=== PATIENT | female | born 1975 | race Caucasian/White ===

== ENCOUNTER 2024-10-10 08:21 | Emergency (ER) | payer OTHER ==
--- OUTSIDE RECORDS SUMMARY | 2024-10-10 08:26 | XMS REPORT | Continuity of Care Document ---
Author Name Unknown Address [address] [facility] [address] [place] [address] [facility] Address [address] [facility] [address] [place] [address] Care Team Providers Care Filter Cleaner Name Role Phone Katy Ramirez Attending Clinician Un available JUSTYNA BRAMBILA Attending Clinician Unavailable LENO CHING Attending Clinician Unavailable LAB90 Attending Clinician Unavailable GC_GCBZW_Kaashlynyala_S Attending Clinician UnavailVIRGINIA Patel Attending Clinician Unava ilable Physician, No Primary or Family Admitting Clinic serjio Unavailable GC_GCBZW_Kadiyala_S Admitting Clinician Unavailjhonathan olguin Payers Payer Name Policy Type Policy Number Effective Date Expirati on Date Source AETNA-MERITAIN/PP O 2 [id number] 2024 00:00:00 AET[employer] - CHOICE (POS II) [id number] 2023 00:00:00 BCBS 2 [id number] 2022 00:00:00 Problems Condition Name Condition Details Condition Category Status Onset Date Resolution Date Last Treatment Date Treating Clinician Comments Source Vitamin D deficiency Vitamin D Deficiency Problem Active 8- 00:00: 00 [facility] Insomnia Insomnia Problem Active 8- 00:00: 00 [facility] Pain of joint Pain of Joint Problem Active 8- 00:00: 00 [facility] Menopausal syndrome Menopausal Syndrome Problem Active 8- 00:00: 00 [facility] Fatigue Fatigue Problem Active 8 00:00: 00 [facility] Menopausal symptoms Menopausal symptoms Disease Active 8 00:00: 00 Dianne Seybold - Externa l Prediabete s Prediabete s Disease Active 09-29 00:00: 00 Dianne Seybold - Externa l Right arm pain Right arm pain Disease Active 7 00:00: 00 Dianne Seybold - Externa l Acute pain of right shoulder Acute pain of right shoulder Disease Active 08-25 00:00: 00 Dianne Seybold - Externa l Obesity, Class I, BMI 30-34.9 Obesity, Class I, BMI 30-34.9 Disease Active 3 00:00: 00 Dianne Seybold - Externa l 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 nt asthma (HHS-HCC) Disease Active 3 00:00: 00 Dianne Seybold - Externa l Hypertrigl yceridemia Hypertrigl yceridemia Disease Active 2023-02 00:00: 00 Dianne Seybold - Externa l Hyperchole steremia Hyperchole steremia Disease Active 2023-02 00:00: 00 Dianne Seybold - Externa l Abnormal findings on diagnostic imaging of breast Abnormal Findings on Diagnostic Imaging of Breast Problem Active 2023-02 0-29 00:00: 00 [facility] Inconclusi ve mammograph y finding Inconclusi ve Mammograph y Finding Problem Active 2023-02 0-15 00:00: 00 [facility] Genital lichen sclerosus Genital Lichen Sclerosus Problem Active 4-05 00:00: 00 [facility] Genital herpes simplex Genital Herpes Simplex Problem Active 4-05 00:00: 00 [facility] Herpesviru s infection Herpesviru s Infection Problem Active 9-07 00:00: 00 [facility] Superficia l pain on intercours e Superficia l Pain on Intercours e Problem Active 9- 00:00: 00 [facility] Granulomat ous disorder of the skin and subcutaneo us tissue Granulomat ous Disorder of the Skin and Subcutaneo us Tissue Problem Active 2020-02 2- 00:00: 00 [facility] Sensation as if urinary bladder still full Sensation as If Urinary Bladder Still Full Problem Active 2020-02 2- 00:00: 00 [facility] Deep pain on intercours e Deep Pain on Intercours e Problem Active 8-11 00:00: 00 [facility] Postcoital bleeding Postcoital Bleeding Problem Active 8-11 00:00: 00 [facility] Lichen sclerosus Lichen Sclerosus Problem Active 5-12 00:00: 00 [facility] Polymenorr hea Polymenorr hea Problem Active 1-18 00:00: 00 [facility] Family history of malignant neoplasm of genital structure Family History of Malignant Neoplasm of Genital Structure Problem Active 1-18 00:00: 00 [facility] Pelvic and perineal pain Pelvic and Perineal Pain Problem Active 1-18 00:00: 00 [facility] Excessive menstruati on with irregular cycle Excessive Menstruati on with Irregular Cycle Problem Active 1-18 00:00: 00 [facility] Neck pain Neck pain Disease Resolve d 7-09 00:00: 00 2024-09-29 00:00:00 2024-09-29 14:58:06 Dianne Garayold - Externa l Elevated LFTs Elevated LFTs Disease Resolve d 2023-02 2-26 00:00: 00 2024-09-29 00:00:00 2024-09-29 14:54:33 Dianne Seybold - Externa l Allergies, Adverse Reactions, Alerts Allergy Name Allergy Type Status Severity Reaction(s) Onset Date Inactive Date Treating Clinician Comments Source codeine DA Active U VOMITING 3-04 00:00: 00 [facility] codeine DA Active U 3-04 00:00: 00 [facility] Codeine Propensi ty to adverse reaction s Active 3-04 00:00: 00 Dianne Carrera - Externa l Codeine Propensi ty to adverse reaction s Active 3 00:00: 00 Dianne Carrera - Externa l Penicill ins DA Active U BREATHING DIFFICULTY 2 00:00: 00 [facility] Penicill ins DA Active U 04-04 00:00: 00 [facility] Penicill ins Propensi ty to adverse reaction s Active Hives 08-09 00:00: 00 Other reaction( s): BREATHING DIFFICULT Y Dianne Carrera - Binga aries Penicill ins Propensi ty to adverse reaction s Active Hives, Itching, Rash, Shortness of Breath, Swelling 05-15 00:00: 00 Other reaction( s): BREATHING DIFFICULT Y Other Reaction( s): Unknown Dianne chris Codeine Allergy to substanc e Active [facility] PENICILL IN Allergy to substanc e Active [facility] Social History Social Habit Start Date Stop Date Quantity Comments Source Sexual orientation 2024-02-10 04:29:16 Heterosexual (finding) Dianne Carrera - External Gender identity 2024-02-10 04:29:16 Identifies as female gender (finding) Dianne Carrera - External ASSERTION Not Dianne Carrera - External Alcoholic beverage intake 2024-09-29 00:00:00 2024-09-29 00:00:00 Current drinker of alcohol (finding) Dianne Carrera - External Alcohol Comment 2024-02-12 00:00:00 2024-02-12 00:00:00 socially Dianne Carrera - External Tobacco use and exposure 2024-02-12 00:00:00 2024-02-12 00:00:00 Smokeless tobacco non-user Dianne Carrera - External History of Social function 2022-11-15 00:00:00 2022-11-15 00:00:00 Dianne Ferrer External Sex 2020-05-16 17:28:30 2020-05-16 17:28:30 Female (finding) Dianne Knowles Sex [birth year] at 1975 00:00:00 1975 00:[birth year]:00 F Dianne Ferrer External Smoking Status Start Date Stop Date Source Never smoked tobacco Dianne Ferrer External Medications Ordered Medication Name Filled Medication Name Start Date Stop Date Current Medication? Ordering Clinician Indication Dosage Frequency Signature (SIG) Comments Components Source B Complex Vitamins (VITAMIN B COMPLEX OR) B Complex Vitamins (VITAMIN B COMPLEX OR) 09-29 14:25: 29 Yes Take by mouth. Dianne Smarta l Cholecalcif ciarra (Vitamin D) 25 MCG (1000 UT) oral Tablet Cholecalcif ciarra (Vitamin D) 25 MCG (1000 UT) oral Tablet 09-29 14:25: 29 Yes 25U QD Take 25 units by mouth daily. Dianne chris Phentermine HCl 37.5 MG oral Tablet Phentermine HCl 37.5 MG oral Tablet 09-29 00:00: 00 Yes [id number] 4107 37.5mg Take 1 tablet (37.5 mg total) by mouth every morning (before breakfast) . Dianne chris Tiffin-3 Fatty Acids (Fish Oil) 1000 MG oral Capsule Tiffin-3 Fatty Acids (Fish Oil) 1000 MG oral Capsule 09-29 00:00: 00 Yes [id number] 1000mg QD Take 1 capsule (1,000 mg total) by mouth daily. Dianne chris Cholecalcif ciarra (Vitamin D) 25 MCG (1000 UT) oral Tablet 08-25 15:47: 54 Yes 25U QD Take 25 units by mouth daily. Dianne Stout l VITAMIN D OR 08-25 15:47: 47 08-25 00:00 :00 No Take by mouth. Dianne Smarta l VITAMIN K OR 08-25 15:47: 41 08-25 00:00 :00 No Take by mouth. Dianne chris B Complex Vitamins (VITAMIN B COMPLEX OR) 08-25 15:04: 05 Yes Take by mouth. Dianne chris Valacyclovi r HCl 500 MG oral Tablet Valacyclovi r HCl 500 MG oral Tablet 08-25 00:00: 00 Yes [id number] 500mg QD Take 1 tablet (500 mg total) by mouth daily. Dianne chris Celecoxib (CeleBREX) 100 MG oral Capsule Celecoxib (CeleBREX) 100 MG oral Capsule 08-25 00:00: 00 09-29 00:00 :00 No [id number] 100mg Q.5D Take 1 capsule (100 mg total) by mouth 2 times daily as needed for pain. Dianne chris Gabapentin 100 MG oral Capsule Gabapentin 100 MG oral Capsule 08-25 00:00: 00 09-29 00:00 :00 No [id number] 100mg Q.5D Take 1 capsule (100 mg total) by mouth 2 times daily as needed (pain). Dianne chris EPINEPHrine 0.3 MG/0.3 ML IJ SOAJ EPINEPHrine 0.3 MG/0.3 ML IJ SOAJ 08-13 00:00: 00 Yes INJECT 0.3 ML INTRAMUSCU LARLY (MID-THIGH , OFF CENTER) NEEDED FOR ANAPHYLAXI S Dianne chris VITAMIN K OR 04-30 08:33: 41 Yes Take by mouth. Dianne chris Phentermine HCl 37.5 MG oral Capsule 04-30 00:00: 00 08-25 00:00 :00 No [id number] 4107 37.5mg Take 1 capsule (37.5 mg total) by mouth every morning. Dianne chris Fluticasone -Salmeterol 250-50 MCG/ACT inhalation AEROSOL POWDER, BREATH ACTIVATED 3-11 00:00: 00 08-25 00:00 :00 No Dianne chris VITAMIN K OR 1-30 08:14: 42 Yes Take by mouth. Dianne chris Multiple Vitamin (MULTIVITAM IN ADULT OR) 03-18 08:14: 00 03-18 00:00 :00 No multivitam in Dianne Deandre chris Fluticasone -Salmeterol (Advair Diskus) 100-50 MCG/ACT inhalation AEROSOL POWDER, BREATH ACTIVATED Fluticasone -Salmeterol (Advair Diskus) 100-50 MCG/ACT inhalation AEROSOL POWDER, BREATH ACTIVATED 03-18 00:00: 00 Yes [id number] 1{puff} Q.5D Inhale 1 puff into the lungs 2 times daily. Dianne chris Phentermine HCl 30 MG oral Capsule 03-18 00:00: 00 04-30 00:00 :00 No [id number] 4107 30mg Take 1 capsule (30 mg total) by mouth every morning. Dianne chris Benzonatate (Tessalon Perles) 100 MG oral Capsule 03-18 00:00: 00 04-30 00:00 :00 No [id number] 100mg Q.[id number] 3D Take 1 capsule (100 mg total) by mouth 3 times daily as needed for cough. Dianne chris VITAMIN K OR 2023-02 10:34: 07 Yes Take by mouth. Dianne chris Albuterol HFA 108 (90 Base) MCG/ACT IN AERS Albuterol HFA 108 (90 Base) MCG/ACT IN AERS 2023-02 00:00: 00 Yes [id number] 2{puff} Q4H Inhale 2 puffs into the lungs every 4 hours as needed for wheezing. Dianne chris Phentermine HCl 15 MG oral Capsule 2023-02 00:00: 00 03-18 00:00 :00 No [id number] 15mg Take 1 capsule (15 mg total) by mouth every morning. Dianne chris Fluticasone -Salmeterol (Advair Diskus) 100-50 MCG/ACT inhalation AEROSOL POWDER, BREATH ACTIVATED 2023-02 00:00: 00 03-18 00:00 :00 No [id number] 1{puff} Q.5D Inhale 1 puff into the lungs 2 times daily. Dianne chris Albuterol (PROVENTIL) (2.5 MG/3ML) 0.083% inhalation Inhalant Solution Albuterol (PROVENTIL) (2.5 MG/3ML) 0.083% inhalation Inhalant Solution 2023-02 00:00: 00 Yes Dianne chris Nebulizers (Comp Air Compressor Nebulizer) does not apply Misc Nebulizers (Comp Air Compressor Nebulizer) does not apply Misc 2023-02 00:00: 00 Yes See Admin Instructio ns. Dianne chris Albuterol HFA 108 (90 Base) MCG/ACT IN AERS 2023-02 00:00: 00 02-11 00:00 :00 No INHALE 2 PUFFS BY MOUTH EVERY 4 HOURS NEEDED FOR COUGH Dianne chris Valacyclovi r HCl 500 MG oral Tablet 2023-02 00:00: 00 Yes Dianne chris multivitami n multivitami n No multivitam in [facility] Comp-Air Nebulizer Compressor USE DIRECTED Comp-Air Nebulizer Compressor USE DIRECTED No Comp-Air Nebulizer Compressor USE DIRECTED [facility] fluticasone 250 mcg-salmete rol 50 mcg/dose blistr powdr for inhalation INHALE 1 PUFF BY MOUTH TWICE DAILY NEEDED fluticasone 250 mcg-salmete rol 50 mcg/dose blistr powdr for inhalation INHALE 1 PUFF BY MOUTH TWICE DAILY NEEDED No fluticason e 250 mcg-salmet ciarra 50 mcg/dose blistr powdr for inhalation INHALE 1 PUFF BY MOUTH TWICE DAILY NEEDED [facility] Vital Signs Vital Name Observation Time Observation Value Comments S estela Systolic blood pressure 2024-09-29 14:23:00 116 mm[Hg] Dianne ceballos - External Diastolic blood pressure 2024-09-29 14:23:00 74 mm[Hg] Dianne ceballos - External Heart rate 2024-09-29 14:23:00 81 /min Kelse y Seybold - External Body temperature 2024-09-29 14:23:00 36.28 Concetta Dianne Seybold - External Respiratory rate 2024-09-29 14:23:00 16 /min Dianne Seybold - External Body height 2024-09-29 14:23:00 162.6 cm Blanca ey Seybold - External Body weight 2024-09-29 14:23:00 86.818 kg Blanca ey Seybold - External BMI 2024-09-29 14:23:00 32.85 kg/m2 Blanca ey Seybold - External Oxygen saturation in Arterial blood by Pulse oximetry 2024-09-29 14:23:00 98 /min Dianne Littlejohnybo ld - External Height 2024-09-29 00:00:00 64 [in_i] [facility] BMI (Body Mass Index) 2024-09-29 00:00:00 32.6 kg/m2 [facility] Body Weight 2024-09-29 00:00:00 190 [lb_av] [facility] BP Systolic 2024-09-29 00:00:00 107 mm[Hg] [facility] BP Diastolic 2024-09-29 00:00:00 67 mm[Hg] [facility] Systolic blood pressure 2024-08-25 20:00:00 118 mm[Hg] Dianne Seybo ld - External Diastolic blood pressure 2024-08-25 20:00:00 72 mm[Hg] Dianne Seybo ld - External Heart rate 2024-08-25 20:00:00 78 /min Kelse y Seybold - External Body temperature 2024-08-25 20:00:00 36.61 Concetta Dianne Seybold - External Respiratory rate 2024-08-25 20:00:00 16 /min Dianne Seybold - External Body height 2024-08-25 20:00:00 162.6 cm Blanca ey Seybold - External Body weight 2024-08-25 20:00:00 87.544 kg Blanca ey Seybold - External BMI 2024-08-25 20:00:00 33.13 kg/m2 Blanca ey Seybold - External Oxygen saturation in Arterial blood by Pulse oximetry 2024-08-25 20:00:00 100 /min Dianne Seybo ld - External BP Systolic 2024-05-28 00:00:00 125 mm[Hg] [facility] BMI (Body Mass Index) 2024-05-28 00:00:00 31.5 kg/m2 [facility] Body Weight 2024-05-28 00:00:00 183.6 [lb_av] [facility] Height 2024-05-28 00:00:00 64 [in_i] [facility] BP Diastolic 2024-05-28 00:00:00 66 mm[Hg] [facility] Systolic blood pressure 2024-04-30 13:30:00 120 mm[Hg] Dianne Seybo ld - External Diastolic blood pressure 2024-04-30 13:30:00 70 mm[Hg] Dianne Seybo ld - External Heart rate 2024-04-30 13:30:00 81 /min Kelse y Seybold - External Body temperature 2024-04-30 13:30:00 36.56 Concetta Dianne Seybold - External Respiratory rate 2024-04-30 13:30:00 15 /min Dianne Seybold - External Body height 2024-04-30 13:30:00 162.6 cm Blanca ey Seybold - External Body weight 2024-04-30 13:30:00 84.369 kg Blanca ey Seybold - External BMI 2024-04-30 13:30:00 31.93 kg/m2 Blanca ey Seybold - External Oxygen saturation in Arterial blood by Pulse oximetry 2024-04-30 13:30:00 99 /min Dianne Seybo ld - External Systolic blood pressure 2024-03-18 14:10:00 122 mm[Hg] Dianne Seybo ld - External Diastolic blood pressure 2024-03-18 14:10:00 74 mm[Hg] Dianne Seybo ld - External Heart rate 2024-03-18 14:10:00 84 /min Kelse y Seybold - External Body temperature 2024-03-18 14:10:00 36.78 Concetta Dianne Seybold - External Respiratory rate 2024-03-18 14:10:00 18 /min Dianne Seybold - External Body height 2024-03-18 14:10:00 162.6 cm Blanca ey Seybold - External Body weight 2024-03-18 14:10:00 86.183 kg Blanca ey Seybold - External BMI 2024-03-18 14:10:00 32.61 kg/m2 Blanca ey Seybold - External Oxygen saturation in Arterial blood by Pulse oximetry 2024-03-18 14:10:00 98 /min Dianne Seybo ld - External Systolic blood pressure 2024-02-12 16:25:00 100 mm[Hg] Dianne Seybo ld - External Diastolic blood pressure 2024-02-12 16:25:00 68 mm[Hg] Dianne Seybo ld - External Heart rate 2024-02-12 16:25:00 77 /min Ravinderse y Seybold - External Body temperature 2024-02-12 16:25:00 36.39 Concetta Dianne Seybold - External Respiratory rate 2024-02-12 16:25:00 15 /min Dianne Seybold - External Body height 2024-02-12 16:25:00 162.6 cm Blanca ey Seybold - External Body weight 2024-02-12 16:25:00 89.359 kg Blanca ey Seybold - External BMI 2024-02-12 16:25:00 33.81 kg/m2 Blanca ey Seybold - External Oxygen saturation in Arterial blood by Pulse oximetry 2024-02-12 16:25:00 96 /min Dianne Littlejohnybo ld - External BP Systolic 2023-05-23 00:00:00 116 mm[Hg] [facility] Height 2023-05-23 00:00:00 64 [in_i] [facility] BP Diastolic 2023-05-23 00:00:00 64 mm[Hg] [facility] Body Weight 2023-05-23 00:00:00 186.6 [lb_av] [facility] BMI (Body Mass Index) 2023-05-23 00:00:00 32 kg/m2 [facility] Systolic blood pressure 2022-12-27 14:12:00 110 mm[Hg] Dianne Seybo ld - External Diastolic blood pressure 2022-12-27 14:12:00 64 mm[Hg] Dianne Seybo ld - External Heart rate 2022-12-27 14:12:00 78 /min Kelse y Seybold - External Body temperature 2022-12-27 14:12:00 36.61 Concetta Dianne Seybold - External Respiratory rate 2022-12-27 14:12:00 18 /min Dianne Seybold - External Body height 2022-12-27 14:12:00 162.6 cm Blanca ey Seybold - External Body weight 2022-12-27 14:12:00 87.147 kg Blanca ey Seybold - External BMI 2022-12-27 14:12:00 32.98 kg/m2 Blanca ey Seybold - External Oxygen saturation in Arterial blood by Pulse oximetry 2022-12-27 14:12:00 99 /min Dianne Seybo ld - External Systolic blood pressure 2022-11-15 13:55:00 114 mm[Hg] Dianne Seybo ld - External Diastolic blood pressure 2022-11-15 13:55:00 64 mm[Hg] Dianne Seybo ld - External Heart rate 2022-11-15 13:55:00 76 /min Kelse y Seybold - External Body temperature 2022-11-15 13:55:00 36.56 Concetta Dianne Seybold - External Respiratory rate 2022-11-15 13:55:00 16 /min Dianne Seybold - External Body height 2022-11-15 13:55:00 162.6 cm Blanca ey Seybold - External Body weight 2022-11-15 13:55:00 89.018 kg Blanca ey Seybold - External BMI 2022-11-15 13:55:00 33.69 kg/m2 Blanca ey Seybold - External Oxygen saturation in Arterial blood by Pulse oximetry 2022-11-15 13:55:00 99 /min Dianne Seybo ld - External Procedures Procedure Date / Time Performed Performing Clinicia n Source HEMOGLOBIN (HB) A1C WITH EAG 2024-10-06 00:00:00 Dianne Seybold - External MAMMO, screening, digital, bilateral 2024-05-28 00:00:00 [facility] MAMMO, screening, digital, bilateral 2023-05-23 00:00:00 [facility] 2020-04-17 [facility] 2008-08-01 00:00:00 [facility] Ligation of Fallopian Tube 2000-04-17 00:00:00 [facility] Plan of Care Planned Activity Planned Date Details Comments Source Procedure 2024-12-30 00:00:00 LIPID PANEL Blanca Carrera - External Encounters Start Date/Time End Date/Time Encounter Type Admission Type Attending [facility] Care Department Encounter ID Source 2020-04-25 11:09:52 Inpatient Katy Ray [facility] [id number] 63 [facility] 2024-12-30 15:00:00 2024-12-30 15:00:00 Outpatient JUSTYNA BRAMBILA [id number] Dianne Carrera 2024-09-29 14:45:00 2024-09-29 14:45:00 Outpatient JUSTYNA BRAMBILA [id number] Dianne Carrera 2024-09-29 00:00:00 2024-09-29 00:00:00 HERSON Ramirez: [address], [place] [address] , Ph. [facility] - GC_GCBZW_Sherrie Corey* [id number] [facility] 2024-08-25 15:30:00 2024-08-25 15:30:00 Outpatient JUSTYNA BRAMBILA [id number] Dianne Carrera 2024-06-30 00:00:00 2024-06-30 00:00:00 Outpatient LENO CHING [id number] Dianne Seleo 2024-05-28 00:00:00 2024-05-28 00:00:00 Kisha Dill PA: [address], [place] [address] , Ph. [facility] - GC_GCBZW_Sherrie Corey* [id number] [facility] 2024-04-30 09:00:00 2024-04-30 09:00:00 [id number] [facility] 08:00:00 2024-04-23 08:00:00 Outpatient CHING, LENO GRAY DIANNE [id number] Dianne [facility] 2024-04-21 00:00:00 2024-04-21 00:00:00 Outpatient CHING, LENO GRAY DIANNE [id number] [facility] 2024-03-19 09:00:00 2024-03-19 09:00:00 Outpatient CHING, LENO GRAY DIANNE [id number] Dianne [facility] 2024-03-18 08:30:00 2024-03-18 08:30:00 Outpatient CHING, LENO GRAY DIANNE [id number] Dianne [facility] 2024-02-17 00:00:00 2024-02-17 00:00:00 Outpatient CHING, LENO GRAY DIANNE [id number] Dianne [facility] 2024-02-12 11:45:00 2024-02-12 11:45:00 Outpatient LAB90 DIANNE GRAY [id number] Dianne [facility] 2024-02-12 11:00:00 2024-02-12 11:00:00 Outpatient CHING, LENO GRAY DIANNE [id number] Dianne [facility] 2024-02-12 00:00:00 2024-02-12 00:00:00 Outpatient CHING, LENO GRAY DIANNE [id number] Dianne [facility] 2023-05-23 00:00:00 2023-05-23 00:00:00 Teresita Vasquez, NET SOFTWARE ARCHITECT: [address] [address] , Ph. GC_GCBZW_Ka junea_S [facility] - GC_GCBZW_[facility]* [id number] [facility] 2022-12-27 09:10:00 2022-12-27 09:10:00 Outpatient LAB90 DIANNE [facility] [id number] [facility] 2022-12-27 08:30:00 2022-12-27 08:30:00 Outpatient VIRGINIA MARTI [id number] [facility] 2022-11-28 00:00:00 2022-11-28 00:00:00 Outpatient VIRGINIA MARTI DIANNE [id number] Dianne Carrera 2022-11-18 00:00:00 2022-11-18 00:00:00 Outpatient VIRGINIA MARTISEY [id number] Dianne Carrera 2022-11-15 09:45:00 2022-11-15 09:45:00 Outpatient LAB90 DIANNE GRAY [id number] Dianne Carrera 2022-11-15 09:00:00 2022-11-15 09:00:00 Outpatient VIRGINIA MARTI DIANNE [id number] Dianne Carrera Results Test Description Test Time Test Comments Results Result Co mments Source URINALYSIS [id number] 16:06:00* Test Item Value Reference Range Interpretation Comme nts UA GLUCOSE DIPSTICK (test code = DGLUU) NEGATIVE mg/dL NEG UA BILIRUBIN DIPSTICK (test code = BILU) NEGATIVE mg/dL NEG UA KETONE DIPSTICK (test code = KETU) NEGATIVE mg/dL NEG UA SPECIFIC GRAVITY (test code = SGU) 1.015 SG 1.005-1.030 UA BLOOD DIPSTICK (test code = DANIEL) TRACE mg/DL NEG A UA PH DIPSTICK (test code = EDEN) 6.5 pH UNITS 5.0-7.0 UA PROTEIN DIPSTICK (test code = PROU) NEGATIVE mg/dL NEG UA UROBILINIOGEN DIPSTICK (test code = URO) 0.2 mg/dL <2.0 UA NITRITE DIPSTICK (test code = DASH) NEGATIVE SCREEN NEG UA LEUKOCYTE ESTERASE DIPSTICK (test code = LEUU) NEGATIVE Leuk/mcL NEGATIVE Urine Specimen Type: Clean CatchCOVID 19 INHOUSE [id number] 15:54:00* Test Item Value Reference Range Interpretation Comme nts COVID 19 INHOUSE AG (test code = [id number]) NEGATIVE Negative Per motor vehicle salesperson , negative results should be treated aspresumptive and, if inconsistent with clinical signs andsymptoms or necessary for patient management, should betested with an alternative molecular assay. Negative resultsdo not preclude SARS-CoV-2 infection and should not be usedas the sole basis for patient management decisions. Negative results should be considered in the context of apatient's recent exposures, history, presence of clinicalsigns and symptoms consistent with COVID-19. HCG SERUM [id number] 15:48:00* Test Item Value Reference Range Interpretation Comme [facility] HCG SERUM QUAL (test code = HCGQL) SERUM NEGATIVE SCREEN NEGATIVE BASIC METABOLIC [id number] 15:38:00* Test Item Value Reference Range Interpretation Comme [facility] SODIUM (test code = NA) 137 mmol/L 134-147 N POTASSIUM (test code = K) 4.1 mmol/L 3.4-5.0 N CHLORIDE (test code = CL) 109 mmol/L 100-108 H CARBON DIOXIDE (test code = CO2) 21 mmol/L 21-32 N ANION GAP (test code = GAP) 7.0 GAP calc 4.0-15.0 N GLUCOSE (test code = GLU) 91 MG/DL 70-110 N BLOOD UREA NITROGEN (test code = BUN) 10 MG/DL 7-18 N GLOMERULAR FILTRATION RATE (test code = GFR) >=60 max estimate estGFR >60 CREATININE (test code = CREAT) 0.8 MG/DL 0.6-1.0 N CALCIUM (test code = CA) 9.0 MG/DL 8.5-10.1 N PROTHROMBIN [id number] 15:35:00* Test Item Value Reference Range Interpretation Comme [facility] PT PATIENT (test code = PTP) 11.0 SECONDS 9.3-12.9 N INTERNATIONAL NORMAL RATIO (test code = INR) 0.98 INR Unit 0.8-1.2 N THROMBOPLASTIN TIME [id number] 15:35:00* Test Item Value Reference Range [facility] PARTIAL (test code = PTT) 32.9 SECONDS 26-35 N CBC W/AUTO [id number] 15:33:00* Test Item Value Reference Range Interpretation Comme [facility] WHITE BLOOD CELL (test code = WBC) 8.2 K/mm3 3.5-11.0 N RED BLOOD CELL (test code = RBC) 4.21 M/mm3 4.70-6.10 L HEMOGLOBIN (test code = HGB) 13.7 G/DL 10.4-14.9 N HEMATOCRIT (test code = HCT) 40.3 % 31.5-44.1 N MEAN CELL VOLUME (test code = MCV) 95.7 Fl 84.5-98.6 N MEAN CELL HGB (test code = MCH) 32.5 pg 27.0-34.2 N MEAN CELL HGB CONCETRATION (test code = MCHC) 34.0 G/DL 31.5-34.0 N RED CELL DISTRIBUTION WIDTH (test code = RDW) 12.3 SD 11.5-14.5 N PLATELET COUNT (test code = PLT) 327 K/mm3 150-450 N MEAN PLATELET VOLUME (test c ode = MPV) 9.60 fL 7.0-10.5 N NEUTROPHIL % (test code = NT%) 47.9 % 40-76 N IMMATURE GRANULOCYTE % (test code = IG%) 0.2 % 0.0-5.0 N LYMPHOCYTE % (test code = LY%) 34.9 % 20.5-51.1 N MONOCYTE % (test code = MO%) 8.5 % 1.7-9.3 N EOSINOPHIL % (test code = EO%) 7.9 % 0.0-6.0 H BASOPHIL % (test code = BA%) 0.6 % 0.0-2.0 N NUCLEATED RBC % (test code = NRBC%) 0.0 /100WBC% 0.0-1.0 N NEUTROPHIL # (test code = NT#) 3.9 K/mm3 1.8-7.6 N IMMATURE GRANULOCYTE # (test code = IG#) 0.02 x10 3/uL 0.00-0.03 N LYMPHOCYTE # (test code = LY#) 2.9 K/mm3 0.6-3.2 N MONOCYTE # (test code = MO#) 0.7 K/mm3 0.3-1.1 N EOSINOPHIL # (test code = EO#) 0.7 K/mm3 0.0-0.4 H BASOPHIL # (test code = BA#) 0.1 K/mm3 0.0-0.1 N NUCLEATED RBC # (test code = NRBC#) 0.0 K/mm3 0.0-0.1 N MANUAL DIFF REQUIRED (test c ode = MDIFF) NO DIFF/SCN CRITERIA Notes Date/Time Note Provider Source 2024-09-29 15:02:22 [facility] [id number] 15:02:22* Patient Instructions* Justyna Brambila DO - 09/29/2024 3:02 PM CDT Neck and arm pain - Symptoms suggest arthritic pain, possibly related to rotator cuff - Good strength and no significant pain upon shoulder palpation - Avoid overexertion and support when lifting objects - Provide online shoulder exercises - Consider orthopedic referral if condition deteriorates Weight management - BMI 32, weight increased from 186 to 191 pounds since 04/2024 - Reduce caloric intake by 10-15%, aiming for <5710-0424 calories daily - High-protein, low-carb diet and 30 minutes of daily exercise - Prescription for phentermine 37.5 mg monthly. She may request refills monthly. PDMP reviewed. - Reassess progress in 3 months Prediabetes - A1c 5.9 in 01/2024, prediabetic range - Continue monitoring blood sugar, maintain healthy diet and exercise - Check A1c before next visit in 3 months Elevated triglycerides - Total cholesterol 178, triglycerides 179, HDL 45, LDL 97 - Continue exercising, consider fish oil supplements - Prescription for fish oil 1000 mg daily - Check cholesterol levels before next visit in 3 months Asthma - Well-controlled with Advair (1 puff twice daily) and albuterol as needed - Continue current medication regimen - Follow up with automotive glass installer as scheduled Menopausal symptoms - Experiencing mood swings, possibly contributing to joint issues - Start hormone pellet therapy - Follow up with aviation maintenance instructor * Attachments The following attachments cannot be sent through Care Everywhere. * Adult Advisor: Shoulder Bursitis Exercises (Faroese) * Adult Advisor: Rotator Cuff Injury Exercises (Faroese) [facility]2025-08-13 15:02:22* Justyna Brambila DO - 09/29/2024 2:45 PM CDT Images from the original note were not included. Patient and patient’s participants in attendance, if any, consented to the use of [employer]sk[employer]), a new technology product that uses artificial intelligence to assist the provider to document the patient encounter and to record this visit. Chief Complaint Neck Pain (Patient states she still has a little pain and is feeling better) and Arm Pain (Patient states she is feeling better) History of Present Illness Lala Holloway is a(n) 49 year old female with a past medical history as documented below who presents today for evaluation of Neck Pain (Patient states she still has a little pain and is feeling better) and Arm Pain (Patient states she is feeling better) . History of Present IllnessThe patient presents for follow-up on neck and arm pain. Neck and Arm Pain- She discontinued prescribed pain medications due to an allergic reaction and is currently not taking any pain medication. - Massage therapy and healthcare administrative assistant have significantly reduced her pain, though she still experiences discomfort when lifting objects, described as a "catch." - She is not taking any nzpr-vfn-[id number] pain relievers. - Her chiropractor diagnosed arthritis in her neck, possibly causing a pinched nerve. - She continues monthly chiropractic visits. - Occasionally, she experiences numbness in her arm, relieved by exercise. Weight Loss- She has lost 10-15 pounds and currently weighs 185-187 pounds. - She maintains a healthy diet, avoiding junk food, and incorporating salads, protein shakes with fruit and yogurt, fruits, and peanut butter. - She exercises in the mornings but has been emotionally hindered recently. - She lives on the third floor and climbs stairs three times a day. - She enjoys swimming but has been unable to due to a recent tattoo. - She takes turmeric, olive oil extract, vitamin D, and B supplements. - She has reduced junk food and alcohol intake. - She was previously on phentermine for weight loss but stopped after 3 months. Asthma- Her asthma is well-managed with weekly allergy injections and biannual check-ups. - She uses Advair (1 puff twice daily) and albuterol as needed but has not required the rescue inhaler recently. Hormone Therapy- She is not currently on hormone therapy and plans to start pellet therapy on Friday after blood work. - She has undergone a complete hysterectomy and is experiencing mood swings affecting her work. - Her aviation maintenance instructor suggested these symptoms could be related to menopause. Hobbies: SwimmingDiet: Healthy diet, avoiding junk food, incorporating salads, protein shakes with fruit and yogurt, fruits, and peanut butter. Alcohol: Reduced intake. Living Condition: Lives on the third floor. PAST SURGICAL HISTORY:Complete hysterectomy FAMILY HISTORYSister had arm surgery. Results - Labs: - A1c: 02/12/2024, 5.9% - Total cholesterol: 02/12/2024, 178 mg/dL - Triglycerides: 02/12/2024, 179 mg/dL - HDL: 02/12/2024, 45 mg/dL - LDL: 02/12/2024, 97 mg/dL - Liver function tests: Normal Lab 02/12/2024: Hemoglobin A1c 5.9. Total cholesterol 178, triglycerides 179,HDL 45, LDL 97. Creatinine 0.8, GFR 89. Liver function test unremarkable Current Medications Current Medications[1] Past Medical History Past Medical History[2] Past Surgical History Past Surgical History:Procedure Laterality Date TOTAL ABDOMINAL HYSTERECT W/WO RMVL TUBE OVARY 2020 TUBAL LIGATION UTERINE ABLATION Family Medical History Family History[3] Social History Social History[4] Review of Systems Review of Systems Physical Exam BP 116/74 (Side: Right Arm, Position: SITTING, Cuff Size: Large Adult) | Pulse81 | Temp 97.3 ?F (36.3 ?C) (Tympanic) | Resp 16 | Ht 5' 4" (1.626 m) | Wt 191 lb 6.4 oz (86.8 kg) | LMP (LMP Unknown) | SpO2 98% | BMI 32.85 kg/m? General: Alert, Conversant, cooperative, oriented x3.HEENT: Head atraumatic. Extraocular movements intact. Ears atraumatic. Nares patent. Oropharynx moist. Dentition appears normal. Neck: Supple. No thyromegaly. Heart: Regular rate and rhythm. No murmurs. Lungs: Clear to auscultation bilateral. Abdomen: Soft, nontender, nondistended. Extremities: Good range of motion to all extremities. No focal deficits. No significant range of motion issues with right shoulder. Skin: Normal skin turgor. Skin appears dry. No significant edema. Neuro: No focal deficits. Mental: Patient appears in good mood. Intact judgement and insight. Patient interactive and appropriate. Assessment and Plan 1. Menopausal symptoms 2. Acute pain of right shoulder 3. Prediabetes- HEMOGLOBIN (HB) A1C WITH EAG; Future 4. Obesity, Class I, BMI 30-34.9- Phentermine HCl 37.5 MG oral Tablet; Take 1 tablet (37.5 mg total) by mouth every morning (before breakfast). Dispense: 30 tablet; Refill: 0 5. Hypertriglyceridemia- LIPID PANEL; Future - Tiffin-3 Fatty Acids (Fish Oil) 1000 MG oral Capsule; Take 1 capsule (1,000 mg total) by mouth daily. Dispense: 90 capsule; Refill: 3 6. Mild intermittent asthma without complication ([facility]) Assessment & Plan Neck and arm pain - Symptoms suggest arthritic pain, possibly related to rotator cuff - Good strength and no significant pain upon shoulder palpation - Avoid overexertion and support when lifting objects - Provide online shoulder exercises - Consider orthopedic referral if condition deteriorates Weight management- BMI 32, weight increased from 186 to 191 pounds since 04/2024 - Reduce caloric intake by 10-15%, aiming for <4816-3048 calories daily - High-protein, low-carb diet and 30 minutes of daily exercise - Prescription for phentermine 37.5 mg monthly. She may request refills monthly. PDMP reviewed. - Reassess progress in 3 months Prediabetes- A1c 5.9 in 01/2024, prediabetic range - Continue monitoring blood sugar, maintain healthy diet and exercise - Check A1c before next visit in 3 months Elevated triglycerides- Total cholesterol 178, triglycerides 179, HDL 45, LDL 97 - Continue exercising, consider fish oil supplements - Prescription for fish oil 1000 mg daily - Check cholesterol levels before next visit in 3 months Asthma- Well-controlled with Advair (1 puff twice daily) and albuterol as needed - Continue current medication regimen - Follow up with automotive glass installer as scheduled Menopausal symptoms- Experiencing mood swings, possibly contributing to joint issues - Start hormone pellet therapy - Follow up with aviation maintenance instructor Follow-up- In 3 months Questions answered. Instructions/handouts given. Risks and benefits of any prescription medicines, including any side effects, addressed in detail with the patient. Patient understands and agrees with plan of care. Follow-Up Return in about 3 months (around 12/30/2024) for prediabetes. JUSTYNA BRAMBILA DO [1]Current Outpatient Medications Medication Sig Dispense Refill Albuterol HFA 108 (90 Base) MCG/ACT IN AERS Inhale 2 puffs into the lungs every 4 hours as needed for wheezing. 1 each 0 B Complex Vitamins (VITAMIN B COMPLEX OR) Take by mouth. Cholecalciferol (Vitamin D) 25 MCG (1000 UT) oral Tablet Take 25 units by mouth daily. Fluticasone-Salmeterol (Advair Diskus) 100-50 MCG/ACT inhalation AEROSOL POWDER, BREATH ACTIVATED Inhale 1 puff into the lungs 2 times daily. 60 each 0 Tiffin-3 Fatty Acids (Fish Oil) 1000 MG oral Capsule Take 1 capsule (1,000 mg total) by mouth daily. 90 capsule 3 Phentermine HCl 37.5 MG oral Tablet Take 1 tablet (37.5 mg total) by mouth every morning (before breakfast). 30 tablet 0 Albuterol (PROVENTIL) (2.5 MG/3ML) 0.083% inhalation Inhalant Solution EPINEPHrine 0.3 MG/0.3 ML IJ SOAJ INJECT 0.3 ML INTRAMUSCULARLY (MID-THIGH, OFF CENTER) NEEDED FOR ANAPHYLAXIS Nebulizers (Comp Air Compressor Nebulizer) does not apply Misc See Admin Instructions. Valacyclovir HCl 500 MG oral Tablet Take 1 tablet (500 mg total) by mouth daily. No current facility-administered medications for this visit.[2] Past Medical History: Diagnosis Date Asthma ([facility]) Elevated LFTs 02/12/2024 Neck pain 08/25/2024 [3] Family History Problem Relation Name Age of Onset Uterine Cancer Mother Skin Cancer Mother Other Father progressive neurological disorder- inclusion body myositis Breast Cancer Sister Diabetes Mellitus Brother type 2, kidney failure from diabetes [4] Social History Socioeconomic History Marital status: Tobacco Use Smoking status: Never Passive exposure: Never Smokeless tobacco: Never Substance and Sexual Activity Alcohol use: Yes Comment: socially Drug use: Never T DianneDeandre [id number] 15:02:22Upcoming Encounters Scheduled Orders Name Type Priority Associated Diagnoses Orde r Schedule HEMOGLOBIN (HB) A1C WITH EAG Lab Routine Prediabetes Expected: 2024, Expires: 04/01/2025 LIPID PANEL Lab Routine Hypertriglyceridemia Exp ected: 12/30/2024 (Approximate), Expires: 09/29/2025 Health Maintenance Due Date Last Done Comments COLONOSCOPY 1973 CT Colonography 1973 FIT Tests 1973 Sigmoidoscopy 1973 Pneumococcal Vaccine: 50+ Years (1 of 2 - PCV) 01/20/1992 Mammogram 2013 Cologuard 11/22/2023 11/21/2020, 11/21/2020 Colorectal Cancer Screening 11/22/2023 Tdap Vaccines 08/03/2024 08/03/2014 (Previously completed) Influenza Vaccines (#1) 2024 COVID-19 Vaccine (1 - 2023-2 5 season) 2025 Postponed from 10/18 (Patient Refused) Lipid Panel 02/11/2025 02/12/2024, 11/15/2022 Physical Exam 02/11/2025 02/12/2024, 11/15/2022 Zoster Vaccines (1 of 2) 02/11/2025 Pos tponed from 2023 (Patient Refused) RSV Vaccines (1 - 1-dose 75+ series) 01/20/2048 [facility]2025-08-13 15:02:22 Diagnosis Prediabetes - Primary Other abnormal glucose Menopausal symptoms Symptomatic menopausal or female climacteric states Acute pain of right shoulder Obesity, Class I, BMI 30-34.9 Obesity, unspecified Hypertriglyceridemia Pure hyperglyceridemia Mild intermittent asthma without complication ([facility]) Unspecified asthma [facility]2025-08-13 15:02:22 [place] [id number] 15:04:06 Chief Complaint Patient presents with Neck Pain Right side Arm Pain Right side patient complains pain for the past 5 days Kourtney Vergara MA [place] [id number] 08:33:43 Chief Complaint Patient presents with Follow-up Follow up on weight management [facility] Kimble [facility] [id number] 08:14:43 Chief Complaint Patient presents with Cough Fever Cough and fever started Friday with body aches coughing of thick yellow mucus Congestion Lala Mccoy LVN [facility] DianneDeandre [id number] 10:34:10 Chief Complaint Patient presents with Physical Patient is fasting. Asthma She has had recent asthma flare ups. Gina Kimble MA II [facility] DianneDeandre [id number] [address] PATIENT NAME: LALA HOLLOWAY ADMIT DATE: 04/20/20 ACCOUNT NO: [id number] ROOM NO: AGE: 45 REPORT TYPE: OPERATIVE REPORT SEX: F ADMITTING PHYSICIAN: ATTENDING PHYSICIAN: Katy Ramirez MD OPERATION DATE: 04/20/2020 PREOPERATIVE DIAGNOSES: Pelvic pain, recurrent heavy bleeding 10 years post ablation. POSTOPERATIVE DIAGNOSES: Pelvic pain, recurrent heavy bleeding 10 years post ablation, endometriosis, omental and sigmoid colon adhesions in the left periureteric area, left hematosalpinx. PROCEDURES: 1. TLH-BSO. 2. Lysis of adhesions of omental and sigmoid colon and bladder; all this took at least 50% or greater of this case. 3. Cystoscopy. PRIMARY SURGEON: Katy Ramirez MD FISHING VESSEL DECKHAND: Priscila Munguia. ANESTHESIA: General endotracheal. FINDINGS: Left periureteric adhesions from the sigmoid colon, bowel adhesions in the left lower quadrant at the pelvic brim as well as anterior abdominal wall omental adhesions. There was significant bladder scarring at the level of the vaginal cuff and closure was performed without any problems. ESTIMATED BLOOD LOSS: Minimal. COMPLICATIONS: No complications. SPECIMENS: Uterus, ovaries, and tubes. DRAINS: No drains. This was a case for robotic converted to laparoscopic. INDICATIONS: The patient is a 45-year-old female presented with heavy bleeding, had an ablation 2 months ago. Her dysmenorrhea and bleeding had improved. Recurrence slowly of pain has occurred, not cyclic anymore, continuous, dyspareunia, recurrent menorrhagia. After evaluation in the office, we discussed about different options which included Depo medroxyprogesterone acetate, observation without any intervention, laparoscopy for endometriosis PATIENT NAME: LALA HOLLOWAY excision, and hysterectomy with laparoscopic removal of adhesions and endometriosis symptom. After all this was discussed with the patient, the patient's pain was significant enough that she wanted to proceed with a hysterectomy. Removal of tubes was definitely advised; however, retention of the ovaries, no abnormal pathology was noted or no significant impact to her recurrence of pain and that was encouraged. However, the patient was significantly in favor of removal of both ovaries so she does not have to have recurrent pain or any further concerns of malignant ovarian tumors. After discussing reasonably that if there is any significant pathology ____, she was then taken back to the OR. She was re-consented in the preop and taken to the OR. PROCEDURE IN DETAIL: The patient was placed in a supine fashion on the operating table. General anesthesia given, placed in dorsal lithotomy position using Rj stirrups. Abdomen, vulva, vagina, and perineum prepped and draped in a sterile fashion. Lee placed to drain the bladder and a large VCare introduced into the uterus and fixed in place. Slight difficulty inserting it due to the ablation, however, we were able to advance it to 8 cm. A 1-cm supraumbilical incision was made in the midline with the help of scalpel after injecting with Marcaine. Fascia incised, tagged with 0 Vicryl sutures. Peritoneum entered and insufflated. Upper and lower abdominal cavities were well visualized. The omentum was largely adhered to the anterior abdominal wall and needed to take down before I could place any other trocars. The left lower quadrant trocar just below the line of the cam port was placed 8 ____ lateral to the midline. This was then used to place the LigaSure and then ____ LigaSure to take down all the adhesions with good hemostasis. Once this was done, then an 8-mm port was placed on the right lower quadrant as well just in the same symmetrical spot of the opposite side. Then, took down the rest of the adhesions and then 8-mm right upper quadrant port was placed and this was used to help me do retraction. Once all the ports were well cleared and then evaluation of the pelvis was done, then this was a feasible case, then proceeded to dock the robot from the left side of the patient, 3 docked with fenestrated bipolar grasper and arm #2 and arm #1 with scissors. Once I visualized everything, then taken down the bowel adhesions on the lateral wall, left lower quadrant from the peritoneum. Then, these adhesions between ____ exposed the infundibulopelvic ligament and then the adhesions were taken down systematically between the pelvic sidewall and the sigmoid and gradually the adhesions got denser, endometriosis was noted on the lateral wall that has been released, so carefully dissection was performed exactly in the periureteric area pulling the ureter medially. So once this dissection was done and entire colon was detached from the sidewall and made secure, then hysterectomy was started. The left tube was cauterized at its fimbriated end, then the IP ligament was cauterized as well. However, there was bleeding at the mesosalpinx, so I took down the utero-ovarian ligament tube, mesosalpinx all medially, first closed with the uterine specimen, then the round ligament, then took down the 2 leaves of the broad ligament anteriorly and posteriorly, anteriorly taken down to the level of the bladder to raise the bladder flap. Then, all the adhesions were taken down to expose the anterior vaginal wall, then the vesicovaginal space was identified and dissected and opened up and the bladder pushed inferiorly. On the left side, the scar tissue was taken down and the vessels were then skeletonized very well and then peritoneum posteriorly taken down to the area PATIENT NAME: LALA HOLLOWAY past the uterosacral attachments medially. This similar dissection started on the opposite side. However, the tube was more consistent with a proximal hematosalpinx and a good interruption of the tube in the mid portion. The distal tube was removed and handed out. Then, the proximal tube was left with the specimen. Utero-ovarian ligament was taken down, the round ligament taken down, posteriorly broad ligament dissected connecting it to the ____ opposite side and anteriorly this needs to be taken down in several bites cleaning out the tissue with adhesions to expose that prevented me from exposing the vessels. Once the vessels were exposed, the bladder flap was completed and bladder adhesions were taken down and the anterior vaginal wall well exposed. Then, vessels were taken down with the help of the LigaSure on both sides. Cardinal ligaments were taken down. Circumferential colpotomy with a monopolar hook blade was performed. The specimen was pulled out through the vagina. Once it was all detached, the left tube and ovary together were detached by cutting down at the IP ligament and handing off for permanent pathology. Right ovary was also removed and taken out through the vagina. Vaginal occluder was placed. The cuff closure was done with the help of 0 Vicryl suture, 2 simple sutures at both ends and 2 [id number]-[id number]-anzow in the center with good apposition. Bladder definitely had this scar and stitches were close to it, but safe enough to not worry about any bladder injury. Both ureters had no evidence of electrical, mechanical, or thermal injury to them. They were well protected. Thorough irrigation and suction of the pelvic cavity was performed. All the trocars were removed under direct vision. Marcaine was injected at the skin and the fascial levels. Fascial closure at the umbilicus with 0 Vicryl tag sutures tied together and the suprapubic incision closed with a simple 0 Vicryl stitch. All the incisions were closed with interrupted 4-0 Vicryl sutures. Lee removed. Cystoscopy performed and both ureteral orifices with strong jets of urine. No evidence of any trauma to the bladder, puckering or any evidence of deeper stitch. Bladder was drained. Vagina was cleaned up. Instrument, needle, and sponge counts were correct at the end of the case. The patient tolerated the procedure well. Once the visualization with the robot was poor after performing the dissection of all the bowel adhesions, I went on to open the mesosalpinx, and as there was bleeding and difficulty visualizing, there was a need to convert to do this procedure safely as the vision at the console was suboptimal. Once I did open and got to the conventional laparoscopic part, then the case ____. Dictated By: Katy Ramirez MD WT: OP:LRAGHAVENDRA/RUTH/LANE Conf#: [id number]/DID#: [id number] Authenticated by Katy Ramirez MD On 05/18/2020 05:13:01 PM at 1713 PATIENT NAME: LALA HOLLOWAY 14:30:00 [facility] ([facility]) Post Anesthesia Evaluation REPORT#:[id number] REPORT STATUS: Signed DATE:04/20/20 TIME:1430 PATIENT: LALA HOLLOWAY UNIT #: [id number] ROOM/BED: : 73 AGE: 45 SEX: F ATTEND: Katy Ramirez MD ADM AUTHOR: Lea Singh MD * ALL edits or amendments must be made on the electronic/computer document * General Post-op: post surgery rounds Post Anesthesia Evaluation Anes. changes from pre-op eval ORM Surgeries: Surgery Date and Time: 04/20/2020 0900 Primary Procedure: ROBOTIC ASSIST LAPAROSCOPIC HYSTERECTOMY Anesthetic: GETA Date: 04/20/20 Level of consciousness: patient awake, able to answer questions, participate in this eval. Neurological assessment: Neuromuscular block: resolved as expected Vital signs: Last Documented: Result Date Time Pulse Ox 99 B/P 119/58 O2 Delivery Room air Temp 36.1 Pulse 72 Resp 19 Cardiovascular: no change, CV system stable, vital signs stable Respiratory/Airway: respiratory system stable, maintains without support Pain: adequately controlled Hydration: adequate Temp status: greater than 96.8F, normothermic Presence of N/V: no Anesthesia complications: no Other changes requiring f/u: none Conclusions: no apparent anes. issues, outpts eval prior DC home at 1431 RPT #: [id number] END OF REPORT [id number] 14:23:00 [facility] ([facility]) Brief Op Note REPORT#:[id number] REPORT STATUS: Signed DATE:04/20/20 TIME:1423 PATIENT: LALA HOLLOWAY UNIT #: [id number] ROOM/BED: : 73 AGE: 45 SEX: F ATTEND: Katy Ramirez MD ADM AUTHOR: Katy Ramirez MD * ALL edits or amendments must be made on the electronic/computer document * Op/Inv Proc Note - Brief Pre-procedure diagnosis: pelvic pain, recurrent bleeding after ablation 10yr ago Post-procedure diagnosis: same as pre procedure dx, Bowel and omental adhesions, endometriosis, left hematosalpinx Procedures performed: TLH BSO, VILMA omental and sigmoid colon, cysto Primary Surgeon: luis eduardo [employer] Bonding Machine Operator(s): Tanesha munguia Anesthesia: general anesthesia Findings: left periureteric adhesions anterior wall omenatal adhesions post broad lig and left USL endonetriosis bladder scarring >50% case robotic converted to laparoscopic Complications: none Estimated blood loss in ml's: 50 Specimens removed/altered: uterus ovaries and tubes and endo Drain(s): None Approach: laparoscopic Wound class: clean-contaminated Disposition: stable Dictation number: [id number] at [id number] RPT #: [id number] [facility] RE[facility]
[2024-10-10] MEDS ORDERED: KETOROLAC 30 MG/ML INJ ONE (08:51)
[2024-10-10] MEDS ORDERED: MORPHINE 2 MG/ML SYR ONE (08:51)
[2024-10-10] MEDS ORDERED: ONDANSETRON 4 MG/2 ML VIAL ONE (08:51)
--- NOTE | 2024-10-10 09:55 | RAD REPORT ---
Exam:Shoulder Right 2+ Views History: Right shoulder pain Findings: No fracture or dislocation seen No bone or joint abnormality noted
--- NOTE | 2024-10-10 09:56 | RAD REPORT ---
Procedure: Chest Single View HISTORY: Chest pain COMPARISON: 2014 FINDINGS: The lungs appear clear of acute infiltrate. No significant pleural effusion noted. The heart is normal size. IMPRESSION: No acute abnormality is displayed.
--- NOTE | 2024-10-10 10:18 | EDPHYS ---
Physician Documentation [facility] Name: Lala Holloway Age: 49 yrs Sex: Female : 1975 Arrival Date: 10/10/2024 Time: 08:21 Bed 6 Private MD: ED Physician Fuentes Topete HPI: 10/10 08:43 This 49 yrs old Female presents to ER via Ambulatory with complaints of dr5 Shoulder Pain. 08:43 The patient or guardian complains of pain, that is chronic. right trapezius and right dr5 sternocleidomastoid. Onset: The symptoms/episode began/occurred this morning. Patient is a 49-year female with no past medical history coming in with right neck and right shoulder pain that started at 330 this morning. Patient reports that she was playing with her family yesterday and the pain begin hurting last night. Patient reports this pain has occurred many times in the past and she uses a neck roller, chiropractor, and pain relief medications at home. Patient reports that her doctor is considering doing an MRI if the pain persist.. 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 - Infectious Disease History:: Denies. - Social history:: Smoking status: Patient denies any tobacco usage or history of. ROS: 08:43 Constitutional: as per hpi dr5 Exam: 08:43 Constitutional: This is a well developed, well nourished patient who is awake, alert, dr5 and in no acute distress. Head/Face: Normocephalic, atraumatic. Eyes: Pupils equal round and reactive to light, extra-ocular motions intact. Lids and lashes normal. Conjunctiva and sclera are non-icteric and not injected. Cornea within normal limits. Periorbital areas with no swelling, redness, or edema. Neck: Trachea midline, no thyromegaly or masses palpated, and no cervical lymphadenopathy. Supple, full range of motion without nuchal rigidity, or vertebral point tenderness. No Meningismus. Chest/axilla: Normal chest wall appearance and motion. Nontender with no deformity. No lesions are appreciated. Cardiovascular: Regular rate and rhythm with a normal S1 and S2. Normal PMI, no JVD. No pulse deficits. Respiratory: Lungs have equal breath sounds bilaterally, clear to auscultation. No rales, rhonchi or wheezes noted. No increased work of breathing, no retractions or nasal flaring. Abdomen/GI: Soft, non-tender, non-distended Back: No spinal tenderness. No costovertebral tenderness. Full range of motion. MS/ Extremity: Pulses equal, no cyanosis. Neurovascular intact. Full, normal range of motion. Pain is relieved when palpated and pressure put on right shoulder. Neuro: Awake and alert, GCS 15, oriented to person, place, time, and situation. Cranial nerves II-XII grossly intact. Motor strength 5/5 in all extremities. Sensory grossly intact. Cerebellar exam normal. Normal gait. Vital Signs: 08:33 BP 135 / 83; Pulse 77; Resp 20; Temp 98; Pulse Ox 99% ; Weight 83.46 kg; Height 5 ft. 4 kn in. ; Pain 10/10; 09:27 BP 132 / 75; Pulse 63; Resp 20; Pulse Ox 98% ; kn 10:31 BP 139 / 77; Pulse 69; Resp 20; Temp 98.1; Pulse Ox 96% ; Pain 7/10; kn 08:33 Body Mass Index 31.58 (83.46 kg, 162.56 cm) kn 08:33 Pain Scale: Adult kn 10:31 Pain Scale: Adult kn MDM: 08:23 Medical Screening Exam initiated dr5 10:20 Differential diagnosis: Anterior dislocation with fracture, Anterior dislocation dr5 without fracture, Posterior dislocation with fracture, Posterior dislocation without fracture, DJD, tendonitis, Muscle strain, pinched nerve. Data reviewed: vital signs, nurses notes, radiologic studies, plain films. Consideration of Admission/Observation Escalation of care including admission/observation considered. Escalation considered patient found to have dislocation of right shoulder. I considered the following discharge prescriptions or medication management in the emergency department I discussed and recommended Over The Counter medications, Medications were administered in the Emergency Department. See MAR. Independent interpretation of the following test(s) in the Emergency Department X-Ray: My interpretation is Independent interpretation of x-ray does not reveal fracture.. Test considered but Not performed: Other Details Sling was considered but not completed due to want patient to range shoulder to prevent frozen shoulder. Historians other than the Patient: Spouse/Significant Other: Significant other at bedside. Care significantly affected by the following Social Determinants of Health: Poor access to healthcare and/or lack of insurance, Poor access to transportation, Problems related to employment. Counseling: I had a detailed discussion with the patient and/or guardian regarding the historical points, exam findings, and any diagnostic results supporting the discharge/admit diagnosis, the presence of at least one elevated blood pressure reading (>120/80) during this emergency department visit, radiology results, the need for outpatient follow up, for definitive care, a family practitioner, a orthopedic surgeon, to return to the emergency department if symptoms worsen or persist or if there are any questions or concerns that arise at home. Medication response: morphine markedly relieved the patient's pain. Symptoms have improved, Toradol markedly relieved the patient's pain. Response to treatment: the patient's symptoms have markedly improved after treatment, Patient reports her pain has improved but still having pain. Will give dose of IV pain medicine prior to discharge. Has been driving. Special discussion: I have referred the patient to see his PCP for further evaluation of high blood pressure. I discussed with the patient/guardian in detail that at this point there is no indication for admission to the hospital. It is understood, however, that if the symptoms persist or worsen the patient needs to return immediately for re-evaluation. Based on the history and exam findings, there is no indication for further emergent testing or inpatient evaluation. I discussed with the patient/guardian the need to see the orthopedic surgeon for further evaluation of the symptoms. ED course: CD as well as x-ray report printed and given to patient to take with her to orthopedic doctor. Patient reports that she is able to make an appointment tomorrow for further management. Recommended range of motion exercises for shoulder to prevent frozen shoulder. All questions answered. Strict ER precautions given.. 10/10 08:35 Order name: Shoulder Right (2 View) XRAY; Complete Time: :57 dr5 10/10 08:35 Order name: Chest Single View XRAY; Complete Time: :57 dr5 Administered Medications: 08:59 Drug: Ondansetron IVP 4 mg IVP once; over 2 minutes Route: IVP; Site: left upper arm; 09:27 Follow up: Response: No adverse reaction 10:34 Follow up: Response: No adverse reaction kn 10:34 Follow up: Response: No adverse reaction kn 08:59 Drug: Ketorolac IVP 15 mg IVP once Route: IVP; Site: left upper arm; kn 09:27 Follow up: Response: No adverse reaction kn 10:33 Follow up: Response: No adverse reaction kn 09:00 Drug: Dexamethasone IVP 10 mg IVP once; (not to exceed 40 mg) Route: IVP; Site: left kn upper arm; 09:27 Follow up: Response: No adverse reaction kn 10:34 Follow up: Response: No adverse reaction kn 09:00 Drug: morphine IVP or IV 2 mg IVP once over 4 mins Route: IVP; Infused Over: 4 mins; kn Site: left upper arm; 09: Follow up: Response: No adverse reaction kn 10:34 Follow up: Response: No adverse reaction kn 10:25 Drug: HYDROmorphone IVP 0.5 mg IVP once Route: IVP; Site: left upper arm; kn 10:34 Follow up: Response: No adverse reaction Disposition: 10:36 Co-signature as Attending Physician, Fuentes Topete MD I reviewed the patient's care rn provided by the Advanced Practice Provider and agree with the diagnosis and treatment plan. Disposition Summary: 10/10/24 10:17 Discharge Ordered Notes: Location: Home dr5 Problem: chronic dr5 Symptoms: have improved dr5 Condition: Stable dr5 Diagnosis - Pain in right shoulder dr5 Followup: dr5 - With: Emergency Department - When: As needed - Reason: Worsening of condition Followup: dr5 - With: Zaid Becerra MD - When: 1 week - Reason: Recheck today's complaints, Continuance of care, Re-evaluation by your physician Followup: dr5 - With: Nabeel Vanegas MD - When: 1 week - Reason: Recheck today's complaints, Continuance of care, Re-evaluation by your physician Discharge Instructions: - Discharge Summary Sheet dr5 - Shoulder Pain dr5 - Shoulder Range of Motion Exercises dr5 Forms: - Medication Reconciliation Form dr5 - Prescription Opioid Use dr5 - Patient Portal Instructions dr5 - Leadership Thank You Letter dr5 Prescriptions: - Ibuprofen 800 mg Oral Tablet - take 1 tablet ORAL route every 12 hours As needed take with food; 20 tablet; dr5 Refills: 0, Product Selection Permitted - Cyclobenzaprine 10 mg Oral Tablet - take 1 tablet ORAL route every 8 hours As needed; 30 tablet; Refills: 0, dr5 Product Selection Permitted - Tramadol 50 mg Oral Tablet - take 1 tablet ORAL route every 8 hours as needed; 12 tablet; Refills: 0, dr5 Product Selection Permitted - Medrol ([place]osevelt) 4 mg Oral Tablets, Dose Pack - take 1 tablet ORAL route as directed - follow package instructions; 1 packet; dr5 Refills: 0, Product Selection Permitted Signatures: Dispatcher [employer] Reanna Nguyễn RN RN iw Nieto, Roman, MD MD rn NICOLOSI, KARLENE, RN RN kn Rhodes, Dustin, BLUEPRINT CUTTER-C BLUEPRINT CUTTER-Cdr5 Corrections: (The following items were deleted from the chart) 08:49 08:49 PSHx: hysterectomy; aidan bermudez
--- NOTE | 2024-10-10 10:18 | ER ---
Nurse's Notes [facility] Name: Lala Holloway Age: 49 yrs Sex: Female : 1975 Arrival Date: 10/10/2024 Time: 08:21 Bed 6 Private MD: Diagnosis: Pain in right shoulder Presentation: 10/10 08:30 Chief complaint: Patient states: pain from right side of neck down to shoulder and arm, iw has been dealing with it for a while, has been seeing a chiropractor and massage therapist, her PCP has prescribed medications for pain that are not helping, the pain got worse at 0330 this morning. Coronavirus screen: At this time, the client does not indicate any symptoms associated with coronavirus-19. Ebola Screen: No symptoms or risks identified at this time. Initial Sepsis Screen: Does the patient meet any 2 criteria? No. Patient's initial sepsis screen is negative. Does the patient have a suspected source of infection? No. Patient's initial sepsis screen is negative. Risk Assessment: Do you want to hurt yourself or someone else? Patient reports no desire to harm self or others. 08:30 Acuity: ROGERIO 3 iw 08:30 Method Of Arrival: Ambulatory iw 08:33 Onset of symptoms was October 10, 2024. kn Triage Assessment: 09:00 General: Appears uncomfortable, Behavior is cooperative, appropriate for age. Pain: kn Complains of pain in base of the skull. Neuro: No deficits noted. Rhodes Agitation-Sedation Scale (RASS): 0 - Alert and Calm Cardiovascular: No deficits noted. Respiratory: No deficits noted. 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 - Infectious Disease History:: Denies. - Social history:: Smoking status: Patient denies any tobacco usage or history of. Screenin:02 [facility] ED Fall Risk Assessment (Adult) History of falling in the last 3 months, kn including since admission No falls in past 3 months (0 pts) Confusion or Disorientation No (0 pts) Intoxicated or Sedated No (0 pts) Impaired Gait No (0 pts) Mobility Assist Device Used No (0 pt) Altered Elimination No (0 pt) Score/Fall Risk Level 0 - 2 = Low Risk Oriented to surroundings, Maintained a safe environment. Abuse screen: Denies threats or abuse. Nutritional screening: No deficits noted. Tuberculosis screening: No symptoms or risk factors identified. Assessment: 09:02 Reassessment: pt ambulatory with steady gait to room, c/c: R neck/should/arm pain kn started this morning at approx 0345hrs, pt took tylenol 1 gram with no relief. pt is AAOx4, placed on bp cuff and pulse ox, vss, Provider at bedside, new orders noted and implemented, will continue to monitor pt. Vital Signs: 08:33 BP 135 / 83; Pulse 77; Resp 20; Temp 98; Pulse Ox 99% ; Weight 83.46 kg; Height 5 ft. 4 kn in. ; Pain 10/10; 09:27 BP 132 / 75; Pulse 63; Resp 20; Pulse Ox 98% ; kn 10:31 BP 139 / 77; Pulse 69; Resp 20; Temp 98.1; Pulse Ox 96% ; Pain 7/10; kn 08:33 Body Mass Index 31.58 (83.46 kg, 162.56 cm) kn 08:33 Pain Scale: Adult kn 10:31 Pain Scale: Adult kn ED Course: 08:23 Patient arrived in ED. ts1 08:23 Stephen Lorenzo FNP-C is PHCP. dr5 08:23 Fuentes Topete MD is Attending Physician. dr5 08:26 YUAN IBRAHIM, RN is Primary Nurse. kn 08:32 Triage completed. iw 09:00 Arm band placed on left wrist. kn 09:02 Patient has correct armband on for positive identification. Bed in low position. Call kn light in reach. Side rails up X 1. Provided Education on: use of call light, plan of care. pt verbalizes understanding. . 09:02 No provider procedures requiring assistance completed. Inserted saline lock: 22 gauge kn in left upper arm, using aseptic technique. Flushed with 10 mL NS. 09:30 Shoulder Right (2 View) XRAY In Process Unspecified. EDMS 09:30 Chest Single View XRAY In Process Unspecified. EDMS 10:17 Zaid Becerra MD is Referral Physician. dr5 10:17 Nabeel Vanegas MD is Referral Physician. dr5 10:31 IV discontinued, intact, bleeding controlled, No redness/swelling at site. Pressure kn dressing applied. Administered Medications: 08:59 Drug: Ondansetron IVP 4 mg IVP once; over 2 minutes Route: IVP; Site: left upper arm; kn 09:27 Follow up: Response: No adverse reaction kn 10:34 Follow up: Response: No adverse reaction kn 10:34 Follow up: Response: No adverse reaction kn 08:59 Drug: Ketorolac IVP 15 mg IVP once Route: IVP; Site: left upper arm; kn 09:27 Follow up: Response: No adverse reaction kn 10:33 Follow up: Response: No adverse reaction kn 09:00 Drug: Dexamethasone IVP 10 mg IVP once; (not to exceed 40 mg) Route: IVP; Site: left kn upper arm; : Follow up: Response: No adverse reaction kn 10:34 Follow up: Response: No adverse reaction kn 09:00 Drug: morphine IVP or IV 2 mg IVP once over 4 mins Route: IVP; Infused Over: 4 mins; kn Site: left upper arm; : Follow up: Response: No adverse reaction kn 10:34 Follow up: Response: No adverse reaction kn 10:25 Drug: HYDROmorphone IVP 0.5 mg IVP once Route: IVP; Site: left upper arm; kn 10:34 Follow up: Response: No adverse reaction kn Medication: 09:02 VIS not applicable for this client. kn Outcome: 10:17 Discharge ordered by . dr5 10:31 Discharged to home ambulatory, with family, kn 10:31 Condition: stable 10:31 Discharge instructions given to patient, 10:34 Patient left the ED. kn Signatures: Dispatcher [employer] Reanna Nguyễn RN RN iw Vivienne Bonilla, PAS PAS ts1 YUAN IBRAHIM RN RN kn Rhodes, Dustin, PUBLIC HEALTH DIRECTOR-C PUBLIC HEALTH DIRECTOR-Cdr5 Corrections: (The following items were deleted from the chart) 08:49 08:49 PSHx: hysterectomy; iw aidan
[2024-10-10] MEDS ORDERED: HYDROMORPHONE HCL 0.5 MG/0.5 ML INJ ONE (10:21)
[2024-10-10 10:46] VITALS: BP 139/77; TEMP 98.1; O2SAT 96
== END 2024-10-10 10:34 | disposition home or self-care (01) ==
LOC: ER 08:21
DX: M25.511 Pain in right shoulder (principal)
CPT/HCPCS: 71045; 73030; 96375; 96374; 99284; J1100; J2270; J1171; J2405